=== PATIENT | female | born 1980 | race Caucasian/White ===

== ENCOUNTER 2023-09-14 08:33 | Outpatient (RCR) | payer OTHER ==
[~2023-09-14 08:33] MED LIST: NORCO 325 MG-51 TAB PO
== END 2023-09-17 | disposition home or self-care (01) ==
LOC: WSST
DX: R49.8 Other voice and resonance disorders (principal); J02.9 Acute pharyngitis, unspecified

== ENCOUNTER 2023-10-05 11:00 | Outpatient (RCR) | payer OTHER | END 2023-10-18 | disposition home or self-care (01) | LOC: WSST | DX: R49.9 Unspecified voice and resonance disorder (principal); J02.9 Acute pharyngitis, unspecified ==